=== PATIENT | female | born 1990 | race Caucasian/White ===

== ENCOUNTER 2019-09-25 08:00 | Inpatient (IN) ==
[2019-09-25] MEDS ORDERED: Lidocaine 1% 20 ML MDV INFILT PRN (08:47)
[2019-09-25] MEDS ORDERED: *HR* FentaNYL (PF) 100 MCG/2 ML VIAL IVP PRN (08:47)
[2019-09-25] MEDS ORDERED: Ondansetron 4 MG/2 ML VIAL IVP PRN ×2 (08:47→10:59)
[2019-09-25] MEDS ORDERED: Metoclopramide 10 MG/2 ML VIAL IVP PRN (08:47)
[2019-09-25] MEDS ORDERED: Azithromycin 500 MG in 0.9 % Sodium Chloride 250 ML IVPB PRN (08:47)
[2019-09-25] MEDS ORDERED: miSOPROStoL 25 MCG TABLET PO PRN (08:47)
[2019-09-25] MEDS ORDERED: Famotidine 20 MG/2 ML VIAL IVP PRN (08:47)
[2019-09-25] MEDS ORDERED: Naloxone 0.4 MG/ML INJ IVP PRN ×2 (08:47→10:59)
[2019-09-25] MEDS ORDERED: Penicillin G Potassium 5,000,000 UNIT in 0.9 % Sodium Chloride Mini Bag 100 ML IVPB ONE (09:48)
[2019-09-25 09:53] LABS: Basophils % 0.5 %; Eosinophils # 0.1 K/mcL (0.0-0.6); Eosinophils % 1.1 %; Hematocrit 37.4 % (35.3-44.9); Hemoglobin 12.4 g/dL (11.5-15.4); Immature Granulocytes % 1.8 % (0-4); Lymphocytes # 1.6 K/mcL (0.6-4.6); Lymphocytes % 19.6 %; Mean Corpuscular HGB Conc 33.2 g/dL (31.6-35.5); Mean Corpuscular Hemoglobin 28.9 pg (28.0-33.3); Mean Corpuscular Volume 87.2 fL (83.0-100.0); Mean Platelet Volume 11.6 fL (9.4-12.4); Monocytes # 0.4 K/mcL (0.0-1.3); Monocytes % 4.8 %; Neutrophils # 6.1 K/mcL (1.6-8.9); Platelet Count 177 K/mcL (140-400); Red Blood Count 4.29 M/mcL (3.82-4.97); Red Cell Distribution Width 13.6 % (11.5-14.5); Segmented Neutrophils % 72.2 %; White Blood Count 8.4 K/mcL (4.3-11.1)
[2019-09-25] MEDS: Ringers Solution, Lactated 1,000 ML IVC SCH ×2 (10:03→15:03)
[2019-09-25 10:44] LABS: Amphetamine Screen,Urine Negative ng/mL (Cutoff=1000); Barbiturate Screen,Urine Negative ng/mL (Cutoff=200); Benzodiazepines Screen,Urine Negative ng/mL (Cutoff=200); Cannabinoid Screen,Urine Negative ng/mL (Cutoff = 50); Cocaine Screen,Urine Negative ng/mL (Cutoff= 300); Opiate Screen,Urine Negative ng/mL (Cutoff=300); Phencyclidine Screen,Urine Negative ng/mL (Cutoff=25)
[2019-09-25] MEDS ORDERED: *HR* FentaNYL (PF) 100 MCG/2 ML VIAL EP ONE (10:59)
[2019-09-25] MEDS ORDERED: Ropivacaine/PF 0.2% 20 ML VIAL EP ONE (10:59)
[2019-09-25] MEDS ORDERED: EPHEDrine 50 MG/ML VIAL IVP PRN (10:59)
[2019-09-25] MEDS ORDERED: Epidural Premix (fent/bupiv) 110 ML EP SCH (11:00)
[2019-09-25] MEDS ORDERED: Acetaminophen 325 MG TABLET PO PRN (11:20)
[2019-09-25] MEDS ORDERED: Penicillin G Potassium 2,500,000 UNIT in 0.9 % Sodium Chloride 100 ML IVPB SCH (14:00)
[2019-09-25] MEDS ORDERED: Ropivacaine/PF 0.2% 20 ML VIAL ONE (14:25)
[2019-09-25] MEDS ORDERED: *HR* FentaNYL (PF) 100 MCG/2 ML VIAL ONE (14:26)
[2019-09-25] MEDS ORDERED: EPHEDrine 50 MG/ML VIAL ONE (15:10)
[2019-09-25] MEDS: Oxytocin 20 units/ LR 1000 mL 20 UNIT/1,000 ML BAG IVC SCH ×2 (15:25→19:01)
[2019-09-25] MEDS ORDERED: ceFAZolin 2,000 MG in Water for inj. (sterile) 20 ML IVP ONE (16:11)
[2019-09-25] MEDS ORDERED: Measles/Mumps/Rubella Vacc 0.5 ML VIAL SQ PRN (20:37)
[2019-09-25] MEDS ORDERED: Benzocaine/Menthol 56 GM AEROSOL SPRAY TP PRN (20:37)
[2019-09-25] MEDS ORDERED: Oxytocin 20 units/ LR 1000 mL 20 UNIT/1,000 ML BAG IVC SCH (20:37)
[2019-09-25] MEDS ORDERED: *HR* HYDROcodone/Acet 5/325 mg TABLET PO PRN (20:37)
[2019-09-25] MEDS: Ibuprofen 600 MG TABLET PO PRN (21:08)
[2019-09-25] MEDS: Acetaminophen 325 MG TABLET PO PRN (23:54)
[2019-09-26] MEDS: Ibuprofen 600 MG TABLET PO PRN ×3 (04:57→19:05)
[2019-09-26] MEDS ORDERED: Prenatal Vit/FA 1 EACH TABLET PO SCH (09:00)
[2019-09-26] MEDS ORDERED: Lanolin 7 G OINT...G. TP PRN (09:02)
[2019-09-26] MEDS: Acetaminophen 325 MG TABLET PO PRN ×2 (09:08→16:23)
[2019-09-26 16:48] VITALS: BP 116/73
== END 2019-09-26 19:49 | disposition home or self-care (01) ==
LOC: 1NENULAB 08:19 → 1NENUOBS 20:06
PROVIDERS: ADMIT Obstetrics & Gynecology; ATTEND Obstetrics & Gynecology